=== PATIENT | male | born 1935 | race Caucasian/White ===

== ENCOUNTER → 2018-02-23 | Outpatient (REF) | payer MEDICARE ==
[2018-02-25 11:00] LABS: ALBUMIN 4.02 GM/DL (3.29-5.55); ALBUMIN % 57.4 % (55.8-66.1); ALPHA-1-GLOBULIN % 4.3 % (2.9-4.9); ALPHA-2-GLOBULINS 0.74 GM/DL (0.42-0.99); ALPHA-2-GLOBULINS % 10.5 % (7.1-11.8); BETA-1-GLOBULINS 0.33 GM/DL (0.28-0.60); BETA-1-GLOBULINS % 4.7 % (4.7-7.2); BETA-2-GLOBULINS 0.35 GM/DL (0.19-0.55); GAMMA GLOBULIN % 18.1 % (11.1-18.8); GAMMA GLOBULINS 1.27 GM/DL (0.65-1.58)
[2018-02-25 11:19] LABS: IMMUNOTYPING SERUM IGA ABNORMAL (NORMAL); IMMUNOTYPING SERUM KAPPA ABNORMAL (NORMAL)
== END ==
LOC: M LAB REF 18:31
DX: D72.819 Decreased white blood cell count, unspecified (principal)
CPT/HCPCS: 84165

== ENCOUNTER → 2018-08-11 | Outpatient (REF) | payer OTHER ==
[2018-08-11 18:38] LABS: FERRITIN 230 NG/ML (26-388); IRON (FE) 38 UG/DL (65-175); PERCENT SATURATION 19.5 % (19.7-50.0); TOTAL IRON BINDING CAPACITY 195 UG/DL (250-450); TOTAL PROTEIN 6.3 GM/DL (6.4-8.2)
[2018-08-11 18:47] LABS: FOLATE 15.6 NG/ML
[2018-08-11 19:01] LABS: URINE TOTAL PROTEIN 11.6 MG/DL (0-12)
[2018-08-11 19:07] LABS: RETIC HEMOGLOBIN EQUIVALENT 19.2 pg (24-36); RETICULOCYTE # 78.5 10^9/L (17-77); RETICULOCYTE % 1.5 % (0.5-1.5)
[2018-08-11 19:44] LABS: SLIDE REVIEW Report; SOURCE PERIPHERAL SMEAR
[2018-08-11 19:45] LABS: REASON FOR REVIEW OTHER
[2018-08-12 12:57] LABS: ALBUMIN 3.64 GM/DL (3.29-5.55); ALBUMIN % 57.7 % (55.8-66.1); ALPHA-1-GLOBULIN % 4.9 % (2.9-4.9); ALPHA-1-GLOBULINS 0.31 GM/DL (0.17-0.41); ALPHA-2-GLOBULINS 0.67 GM/DL (0.42-0.99); ALPHA-2-GLOBULINS % 10.6 % (7.1-11.8); BETA-1-GLOBULINS % 4.8 % (4.7-7.2); BETA-2-GLOBULINS % 4.8 % (3.2-6.5); GAMMA GLOBULIN % 17.2 % (11.1-18.8); GAMMA GLOBULINS 1.08 GM/DL (0.65-1.58)
[2018-08-12 14:35] LABS: IMMUNOTYPING SERUM IGA ABNORMAL (NORMAL); IMMUNOTYPING SERUM KAPPA ABNORMAL (NORMAL)
[2018-08-12 15:24] LABS: UPEP INTERPRETATION NO M-SPIKE NOTED; URINE VOLUME RANDOM ML
== END ==
LOC: M LAB REF 17:00
DX: D72.820 Lymphocytosis (symptomatic) (principal); R71.8 Other abnormality of red blood cells
CPT/HCPCS: 82746

== ENCOUNTER → 2020-07-31 | Outpatient (REF) | payer MEDICARE ==
[2020-07-31 17:50] LABS: PERCENT SATURATION 40.3 % (19.7-50.0)
== END ==
LOC: M LAB REF 16:35
PROVIDERS: ATTEND Family Medicine
DX: D64.9 Anemia, unspecified (principal)

== ENCOUNTER → 2021-02-06 | Outpatient (REF) | payer MEDICARE ==
[2021-02-06 20:40] LABS: ATYPICAL LYMPH 5 % (0-5); LYMPHOCYTES 69 % (16-44); MICROCYTOSIS 3+; MONOCYTES 5 % (0-5); NEUTROPHILS 21 % (28-66)
[2021-02-06 20:41] LABS: HYPOCHROMASIA 2+
[2021-02-06 20:42] LABS: ANISOCYTOSIS 2+; TARGET CELLS 1+
[2021-02-06 20:44] LABS: SCHISTOCYTES 1+; TEAR DROP CELLS 1+
[2021-02-06 20:45] LABS: PLATELET ESTIMATE NORMAL (NORMAL); POIKILOCYTOSIS 1+
[2021-02-07 11:03] LABS: IMMUNOTYPING SERUM IGA ABNORMAL (NORMAL); IMMUNOTYPING SERUM KAPPA ABNORMAL (NORMAL)
== END ==
LOC: M LAB REF 16:25
PROVIDERS: ATTEND Family Medicine
DX: D72.9 Disorder of white blood cells, unspecified (principal); D80.1 Nonfamilial hypogammaglobulinemia

== ENCOUNTER 2022-01-30 10:41 | Outpatient (RCR) | payer MEDICARE, OTHER ==
[~2022-01-30 10:41] MED LIST: FERR324T21 PO; FOLI1TAB11 PO; MULTTAB61 PO; TAMS1CAP17
== END 2022-02-22 ==
LOC: M PT 10:41
PROVIDERS: ATTEND Orthopaedic Surgery Adult Reconstructive Orthopaedic Surgery
DX: M54.50 Low back pain, unspecified (principal)

== ENCOUNTER → 2022-02-19 | Outpatient (REF) | payer MEDICARE ==
[2022-02-19 19:50] LABS: EOSINOPHILS 1 % (0-3); LYMPHOCYTES 78 % (16-44); NEUTROPHILS 20 % (28-66)
[2022-02-19 19:51] LABS: ANISOCYTOSIS 1+; HYPOCHROMASIA 1+; MICROCYTOSIS 4+; OVALOCYTES 2+; PLATELET ESTIMATE NORMAL (NORMAL); POIKILOCYTOSIS 1+; TARGET CELLS 2+
[2022-02-19 19:52] LABS: TEAR DROP CELLS 2+
== END ==
LOC: M LAB REF 16:50
PROVIDERS: ATTEND Family Medicine
DX: D72.89 Other specified disorders of white blood cells (principal)

== ENCOUNTER → 2022-08-25 | Outpatient (REF) | payer MEDICARE ==
[2022-08-25 17:43] LABS: LYMPHOCYTES 77 % (16-44); MONOCYTES 4 % (0-5); NEUTROPHILS 19 % (28-66); PLATELET ESTIMATE NORMAL (NORMAL); POIKILOCYTOSIS 2+
[2022-08-25 17:44] LABS: MICROCYTOSIS 4+; TEAR DROP CELLS 1+
[2022-08-25 17:45] LABS: SCHISTOCYTES 1+
== END ==
LOC: M LAB REF 16:08
PROVIDERS: ATTEND Family Medicine
DX: D72.9 Disorder of white blood cells, unspecified (principal)

== ENCOUNTER 2022-10-20 14:42 | Emergency (ER) | payer MEDICARE ==
[~2022-10-20] VITALS: Ht 167.6 cm; Wt 54.5 kg
[~2022-10-20 14:42] MED LIST changes: +VITALIQ60 MC
[2022-10-20 14:43] VITALS: BP 137/89
== END 2022-10-20 17:55 | disposition left against medical advice (07) ==
LOC: M ED 14:42
DX: J06.9 Acute upper respiratory infection, unspecified (principal); Z53.20 Procedure and treatment not carried out because of patient's decision for unspecified reasons; Z87.442 Personal history of urinary calculi; N40.0 Benign prostatic hyperplasia without lower urinary tract symptoms; Z85.46 Personal history of malignant neoplasm of prostate; Z79.899 Other long term (current) drug therapy

== ENCOUNTER → 2022-12-25 | Outpatient (CLI) | payer OTHER, MEDICARE ==
[2022-12-25 12:54] LABS: HEMATOCRIT 27.3 % (42.0-52.0); HEMOGLOBIN 8.2 g/dl (13.5-17.5); MEAN CORPUSCULAR HEMOGLOBIN 18.9 pg (27.0-33.0); MEAN CORPUSCULAR VOLUME 62.8 fl (80.0-96.0); PLATELET COUNT, AUTOMATED 217 10^3/uL (150-450); RED BLOOD COUNT 4.35 10^6/uL (4.30-6.10); WHITE BLOOD COUNT 10.2 10^3/uL (4.0-10.0)
[2022-12-25 13:08] VITALS: BP 140/70
[2022-12-25 13:27] LABS: ATYPICAL LYMPH 12 % (0-5); EOSINOPHILS 1 % (0-3); LYMPHOCYTES 52 % (16-44); MONOCYTES 3 % (0-5); NEUTROPHILS 30 % (28-66)
[2022-12-25 13:28] LABS: HYPOCHROMASIA 2+; MICROCYTOSIS 4+
[2022-12-25 13:30] LABS: ANISOCYTOSIS 2+; TARGET CELLS 2+
[2022-12-25 13:31] LABS: OVALOCYTES 1+; SMUDGE CELLS 3+
[2022-12-25 13:33] LABS: PLATELET ESTIMATE NORMAL (NORMAL); TEAR DROP CELLS 1+
== END ==
LOC: M IRPRO 12:00
PROVIDERS: ATTEND Specialist
DX: D50.9 Iron deficiency anemia, unspecified (principal); D72.820 Lymphocytosis (symptomatic); C91.10 Chronic lymphocytic leukemia of B-cell type not having achieved remission

== ENCOUNTER → 2023-01-13 | Outpatient (CLI) | payer OTHER ==
[~2023-01-13] MED LIST changes: +IMBR1CAP PO
== END ==
LOC: M EKG 10:42
PROVIDERS: ATTEND Specialist
DX: D50.9 Iron deficiency anemia, unspecified (principal)

== ENCOUNTER 2023-02-02 08:16 | Emergency (ER) | payer OTHER ==
[~2023-02-02] VITALS: Ht 154.9 cm; Wt 54.5 kg
[2023-02-02] MEDS ORDERED: OXYMETAZOLINE 0.05% NASAL SPRAY (AFRIN) ONE (09:40)
[2023-02-02 10:26] LABS: INR 1.07; PROTHROMBIN TIME 14.1 SECONDS (12.5-14.5)
[2023-02-02 10:27] LABS: PARTIAL THROMBOPLASTIN TIME 23.8 SECONDS (24.8-34.2)
[2023-02-02 10:30] LABS: HEMATOCRIT 27.3 % (42.0-52.0); MEAN CORPUSCULAR HEMOGLOBIN 18.6 pg (27.0-33.0); MEAN CORPUSCULAR HGB CONC 29.3 g/dl (32.0-36.5); MEAN CORPUSCULAR VOLUME 63.5 fl (80.0-96.0); PLATELET COUNT, AUTOMATED 112 10^3/uL (150-450); WHITE BLOOD COUNT 12.3 10^3/uL (4.0-10.0)
[2023-02-02] MEDS ORDERED: SILVER NITRATE APPLICATOR (1 = QTY 10) TOP ONE (11:10)
[2023-02-02 11:23] LABS: ATYPICAL LYMPH 7 % (0-5); LYMPHOCYTES 67 % (16-44); MONOCYTES 2 % (0-5); NEUTROPHILS 24 % (28-66)
[2023-02-02 11:25] LABS: HYPOCHROMASIA 2+
[2023-02-02 11:26] LABS: ANISOCYTOSIS 2+
[2023-02-02 11:28] LABS: MICROCYTOSIS 4+; TEAR DROP CELLS 1+
[2023-02-02 11:29] LABS: PLATELET ESTIMATE DECREASED (NORMAL)
[2023-02-02 11:42] LABS: ALBUMIN 3.2 G/DL (3.2-5.2); ALKALINE PHOSPHATASE 66 U/L (46-116); ALT/SGPT 9 U/L (7.0-40); AST/SGOT 22 U/L (<34); BILIRUBIN,DIRECT 0.3 MG/DL (<0.4); BILIRUBIN,TOTAL 0.9 MG/DL (0.3-1.2); BLOOD UREA NITROGEN 38 MG/DL (9-23); CALCIUM LEVEL 8.2 MG/DL (8.3-10.6); CARBON DIOXIDE LEVEL 24 MMOL/L (20-31); CHLORIDE LEVEL 110 MMOL/L (98-107); CREATININE FOR GFR 1.17 MG/DL (0.70-1.30); GLOMERULAR FILTRATION RATE > 60.0 (>35); GLUCOSE, FASTING 88 MG/DL (74-106); POTASSIUM SERUM 3.5 MMOL/L (3.5-5.1); SODIUM LEVEL 143 MMOL/L (136-145); TOTAL PROTEIN 5.9 G/DL (5.7-8.2)
[2023-02-02 12:08] VITALS: BP 137/78
[2023-02-02] MEDS ORDERED: SALI0.6530 NARES (12:08)
== END 2023-02-02 12:26 | disposition home or self-care (01) ==
LOC: M ED 08:16
DX: R04.0 Epistaxis (principal); D64.9 Anemia, unspecified; D69.6 Thrombocytopenia, unspecified; Z85.6 Personal history of leukemia; N40.0 Benign prostatic hyperplasia without lower urinary tract symptoms; R35.1 Nocturia; Z79.899 Other long term (current) drug therapy